=== PATIENT | male | born 1990 | race Two or more races ===

== ENCOUNTER 2019-01-11 10:18 | Day surgery (SDC) | payer OTHER ==
[~2019-01-11] VITALS: Ht 167.6 cm; Wt 76.7 kg
[~2019-01-11 10:18] MED LIST: CelecoXIB 400 MG CAP PO ONE; GABAPENTIN 300 MG CAP PO ONE; LIDOCAINE 1% MDV 20ML VIAL SQ PRN; LR 1,000 ML IV ONE; PERCOCET 5MG/325MG TAB PO ONE
[2019-01-11] MEDS ORDERED: LIDOCAINE 2% INJ 100 MG/5 ML SDV (FOR ANES.) As Ordered ONE (11:31)
[2019-01-11] MEDS ORDERED: PROPOFOL 200 MG/20 ML VIAL As Ordered ONE (11:31)
[2019-01-11] MEDS ORDERED: ONDANSETRON 4MG/2ML VIAL (J2405) As Ordered ONE (11:31)
[2019-01-11] MEDS ORDERED: dexameTHASONE 4 MG/ML 1ML VIAL (J1100) As Ordered ONE (11:31)
[2019-01-11] MEDS ORDERED: ROCURONIUM BROMIDE 50 MG/5 ML VIAL As Ordered ONE (11:31)
[2019-01-11] MEDS ORDERED: MIDAZOLAM INJ 2 MG/2 ML VIAL (J2250) As Ordered ONE (11:33)
[2019-01-11] MEDS ORDERED: fentaNYL 100 MCG/2 ML INJECTION (J3010) As Ordered ONE ×2 (11:33→14:28)
[2019-01-11] MEDS ORDERED: BUPIVACAINE/EPIN 0.5% 30 ML VIAL As Ordered ONE (12:43)
[2019-01-11] MEDS ORDERED: TRANEXAMIC ACID 100 MG/ML 10ML VIAL As Ordered ONE (12:43)
[2019-01-11] MEDS ORDERED: EPINEPHrine INJ 1 MG/ML 1ML AMP As Ordered ONE (12:43)
[2019-01-11] MEDS ORDERED: BUPIVACAINE LIPOSOME/PF 1.3% 20ML VIAL (13.3MG/ML)(EXPAREL)(C9290 PER1MG) As Ordered ONE (12:43)
[2019-01-11] MEDS ORDERED: BUPIVACAINE HCL 0.25% 10 ML VIAL As Ordered ONE (12:43)
[2019-01-11] MEDS ORDERED: THROMBIN SOLN 20,000 UNITS KIT As Ordered ONE (12:43)
[2019-01-11] MEDS ORDERED: BACITRACIN PWD 50,000 UNITS VIAL As Ordered ONE (12:44)
[2019-01-11] MEDS ORDERED: ceFAZolin 2 GM/D5W 50 ML IV BAG (J0690 PER 500MG) As Ordered ONE (13:51)
[2019-01-11] MEDS ORDERED: ceFAZolin SOD 2 GM in IV 1 EA IV ONE (14:00)
[2019-01-11] MEDS ORDERED: ePHEDrine SULFATE 25 MG/5 ML(5MG/ML) SYRINGE As Ordered ONE (14:27)
[2019-01-11] MEDS ORDERED: KETAMINE HCL 200 MG/20 ML VIAL As Ordered ONE (14:28)
[2019-01-11] MEDS ORDERED: SUGAMMADEX SODIUM 500 MG/5 ML VIAL (BRIDION) As Ordered ONE (14:37)
[2019-01-11] MEDS ORDERED: ACETAMINOPHEN 1000MG 100ML IV BTL (OFIRMEV) (J0131 PER 10MG) As Ordered ONE (15:48)
[2019-01-11] MEDS ORDERED: fentaNYL 100 MCG/2 ML INJECTION (J3010) IV PRN (16:30)
[2019-01-11] MEDS ORDERED: METOCLOPRAMIDE INJ 10MG/2ML VIAL (J2765) IV PRN (16:30)
[2019-01-11] MEDS ORDERED: LR 1,000 ML IV SCH ×2 (16:30→17:31)
[2019-01-11] MEDS ORDERED: ONDANSETRON 4MG/2ML VIAL (J2405) IV PRN (16:30)
[2019-01-11] MEDS: PERCOCET 5MG/325MG TAB PO PRN ×3 (16:37→22:01)
[2019-01-11] MEDS ORDERED: PROMETHAZINE INJ 25 MG/ML VIAL (J2550) IV PRN (17:31)
[2019-01-11] MEDS ORDERED: HYDROMORPHONE HCL 0.5 MG/ 0.5 ML SYRINGE (J1170 PER 1) IV PRN (17:31)
[2019-01-11] MEDS ORDERED: PERCOCET 5MG/325MG TAB PO PRN (17:31)
[2019-01-11 17:48] VITALS: BP 124/78
[2019-01-11 18:24] VITALS: BP 123/79
--- NOTE | 2019-01-11 18:50 | REP ---
Lumbar spine: Single portable intraoperative film. Time stamped 02:51 p.m.. History: Left L5-S1 microdiskectomy. Findings: A single cross-table lateral portably obtained view of the lumbar spine demonstrates an intraoperative probe at the dorsal aspect of the spinal canal at the level of the L5-S1 disc. Electronically Signed by Kai Barron MD 01/11/2019 06:41 P
[2019-01-11 19:29] VITALS: BP 138/80
[2019-01-11 20:34] VITALS: BP 126/72
[2019-01-11 21:37] VITALS: BP 125/72
[2019-01-11] MEDS: METAMUCIL (PSYLLIUM) PACKET PO SCH (22:01)
[2019-01-11] MEDS: ceFAZolin SOD 2 GM in IV 1 EA IV SCH (22:01)
[2019-01-11 22:45] VITALS: BP 121/73
[2019-01-12 03:13] VITALS: BP 122/72
[2019-01-12 05:30] VITALS: BP 115/75
[2019-01-12] MEDS: ceFAZolin SOD 2 GM in IV 1 EA IV SCH (05:37)
[2019-01-12] MEDS: PERCOCET 5MG/325MG TAB PO PRN (05:39)
[2019-01-12] MEDS ORDERED: PERC5TAB12 PO (06:17)
[2019-01-12] MEDS: METAMUCIL (PSYLLIUM) PACKET PO SCH (08:26)
[2019-01-12] MEDS ORDERED: CelecoXIB 400 MG CAP PO ONE (09:00)
--- NOTE | 2019-01-13 13:30 | RO ---
DATE OF SURGERY: 01/11/2019 PREOPERATIVE DIAGNOSIS: Left lower extremity radiculopathy secondary to the large disc herniation at L5-S1 on his left paracentral. POSTOPERATIVE DIAGNOSIS: Left lower extremity radiculopathy secondary to the large disc herniation at L5-S1 on his left paracentral. PROCEDURE PERFORMED: Left L5-S1 microdiscectomy. SURGEON: Adolfo Duff MD FAMILY SERVICES MANAGER: Alejandra Dominguez PA-C ANESTHESIA: General. ESTIMATED BLOOD LOSS: Less than 40 mL, replaced with crystalloid. No complication. INDICATIONS: Discomfort radiating down the left lower extremity for many months, unresponsive to physical therapy. Recent MRI reflects severe spinal stenosis secondary to a large left paracentral disc herniation. The patient elects for operative intervention. Consent reviewed in detail, including a paulino discussion of the pathology involved, procedure proposed, alternatives including doing nothing and risks including but not limited to pain, failure, infection, bleeding, blood loss, incomplete relief of symptoms, need for additional surgery, nerve injury, and other issues. The patient agrees to proceed. OPERATIVE COURSE: Identified in the holding area. Site and side verified. Brought to the operating room. Once anesthesia was administered, he was moved to the Mihir frame, which was elevated. Axillary roll was utilized. Knees slightly flexed. Sterilely prepped and draped in the usual fashion for exposure of the LS spine. The time-out was accomplished. The incision was based on bony landmarks, infiltrated with 0.25% Marcaine with epinephrine. A 2-fingerbreadth incision was made with a 10 blade knife under loupe magnification and developed down through subcuticular tissues to the posterior lumbar fascia. I stood on the patient's right side. Next, the posterior lumbar fascia was sharply reflected off of the spinous processes of 5 and 1. Dissection continued using Bovie cautery along the spinous process of 5 over the L5 lamina. A divot was drilled in the L5 lamina using the high-speed bur. Betts-Shaun probe was placed in the divot. At this stage, a cross-table lateral x-ray was obtained to verify our level. I then further exposed the superior lamina of 5 in the superior lamina of S1. I then placed the Shadow-Line retractor with the assistance of Ms. Dominguez. The operating microscope was sterilely draped. My loupe and headlamp were removed. I looked through the oculars on the left. Ms. Dominguez on the right. This facilitated safe use of the high-speed bur. High-speed bur was utilized to implement the left unilateral laminotomy of the L5-S1 level, protecting the facet; about 10% of the medial aspect of the facet was compromised. The bur was extended to the bare area of 5 and the bare area of S1. I utilized curved curettes to elevate ligamentum flavum. Mr. Dominguez utilized the suction levels to help with exposure. I utilized two Kerrisons and pituitaries to remove ligamentum flavum. The dura was directly visualized. I was then able to decompress the lateral recess, and I was able to sweep the traversing S nerve root medially exposing disc annulus complex. The disc was quite large, elevating the nerve root as well as the thecal sac. Next, bipolar cautery was utilized for hemostasis. I then created a rent in the annulus and was able to retrieve extruded disc material using a Flood pituitary and a regular pituitary. I explored using the Betts-Shaun as a probe and removed additional disc material. Bipolar cautery was utilized. Irrigation was utilized. The retractors were removed. Posterior lumbar fascia was reapproximated. Deep dermis reapproximated. Pernio dressing applied on skin. We had used Exparel prior to closure for perioperative pain control. The patient log-rolled to hospital bed and moved to recovery room in good condition. For further details, please refer to medical record. Ms. Dominguez was present and participated in the entirety of the case.
== END 2019-01-12 10:20 | disposition home or self-care (01) ==
LOC: M SDC 10:18 → M MS5PR 17:30 → M SDC 01-12 10:20
PROVIDERS: ATTEND Orthopaedic Surgery
DX: M48.061 Spinal stenosis, lumbar region without neurogenic claudication (principal); M51.26 Other intervertebral disc displacement, lumbar region; Z87.891 Personal history of nicotine dependence
CPT/HCPCS: 36415; 63030; 72100; 86850; 86900; 86901; 88304; 96374; 96376; C9290; J0131; J0690; J1100; J2250; J2405; J3010

== ENCOUNTER 2019-08-16 21:34 | Emergency (ER) | payer OTHER ==
[~2019-08-16] VITALS: Ht 167.6 cm; Wt 82.1 kg
[~2019-08-16 21:34] MED LIST changes: -CelecoXIB 400 MG CAP PO ONE; -GABAPENTIN 300 MG CAP PO ONE; -LIDOCAINE 1% MDV 20ML VIAL SQ PRN; -LR 1,000 ML IV ONE; +PERC5TAB12 PO; -PERCOCET 5MG/325MG TAB PO ONE
[2019-08-16] MEDS ORDERED: GABA-843 PO (21:46)
[2019-08-16] MEDS ORDERED: MOBI15TA PO (21:46)
[2019-08-16] MEDS ORDERED: CYCL-707 PO (21:46)
[2019-08-16] MEDS ORDERED: PERCOCET 5MG/325MG TAB PO ONE (22:00)
[2019-08-16] MEDS ORDERED: NORC1TAB7 PO (22:37)
[2019-08-16] MEDS ORDERED: NORCO 5/325MG TABLET (BULK FOR ED) PO ONE (23:00)
[2019-08-16 23:08] VITALS: BP 116/64
--- NOTE | 2019-08-17 00:35 | REP ---
Clinical: Back pain . Technique: AP, lateral, bilateral oblique, and coned-down views. Findings: Alignment and lordosis is maintained. The vertebral bodies including transverse process and spinous processes are intact and normal. There is no evidence for acute fracture / compression injury or subluxation. No evidence for spondylolysis or spondylolisthesis. No significant degenerative change is noted. Impression: Normal lumbosacral spine radiograph series. Electronically Signed by Dashawn Conner MD 08/17/2019 12:27 A
== END 2019-08-16 23:11 | disposition home or self-care (01) ==
LOC: M ED 21:34
DX: M54.30 Sciatica, unspecified side (principal); M51.9 Unspecified thoracic, thoracolumbar and lumbosacral intervertebral disc disorder; Z98.890 Other specified postprocedural states

== ENCOUNTER 2020-06-13 19:42 | Emergency (ER) | payer OTHER ==
[~2020-06-13] VITALS: Ht 167.6 cm; Wt 80.9 kg
[~2020-06-13 19:42] MED LIST changes: +CYCL-707 PO; +GABA-282 PO; +MOBI15TA PO; +NORC1TAB7 PO
[2020-06-13] MEDS ORDERED: CYMB1CAP5 PO (19:56)
[2020-06-13] MEDS ORDERED: diazePAM 10 MG TAB PO ONE (20:50)
[2020-06-13] MEDS ORDERED: predniSONE 20 MG TAB PO ONE (20:50)
[2020-06-13] MEDS ORDERED: LIDOCAINE 5% (LIDODERM) PATCH TD ONE (20:50)
[2020-06-13] MEDS ORDERED: **NOTE PATIENT COMMENT** MISC XX SCH (21:00)
[2020-06-13] MEDS ORDERED: ASPE4PAD TOP (21:46)
[2020-06-13] MEDS ORDERED: ROBA750T4 PO (21:46)
[2020-06-13 21:54] VITALS: BP 118/73
== END 2020-06-13 21:55 | disposition home or self-care (01) ==
LOC: M ED 19:42
DX: G89.29 Other chronic pain (principal); M54.5 Low back pain; Z79.899 Other long term (current) drug therapy